=== PATIENT | male | born 1955 | race Asian ===

== ENCOUNTER 2018-05-24 10:39 | Emergency (ER) | payer OTHER ==
[~2018-05-24] VITALS: Ht 167.6 cm; Wt 78.0 kg
[2018-05-24] MEDS ORDERED: CLOP75TA16 PO (10:56)
[2018-05-24] MEDS ORDERED: ATOR10TA69 PO (10:56)
[2018-05-24] MEDS ORDERED: AMIO100T4 PO (10:56)
[2018-05-24] MEDS ORDERED: METO-396 PO (10:56)
[2018-05-24 11:18] LABS: HEMATOCRIT. 44.1 % (42.0-52.0); HEMOGLOBIN. 14.9 g/dL (14.0-18.0); MEAN CORPUSCULAR HEMOGLOBIN 30.3 pg (28.0-32.0); MEAN CORPUSCULAR VOLUME 89.9 fL (80.0-94.0); PLATELET 347 x1000/uL (130-400); RED BLOOD CELL COUNT 4.91 mill/uL (4.7-6.1)
[2018-05-24] MEDS: NITROGLYCERIN OINT 1GM/INCH UDPKT TD ONE ×2 (11:19→11:23)
[2018-05-24 11:27] LABS: PROTHROMBIN TIME 10.3 sec (9.1-11.1)
[2018-05-24 11:28] LABS: CHLORIDE 102 mEq/L (98-107)
[2018-05-24 12:36] LABS: PLATELET ESTIMATE NORMAL
[2018-05-24] MEDS ORDERED: SODIUM CHLORIDE 0.9% 1,000 ML IV ONE (13:05)
[2018-05-24 14:00] VITALS: BP 138/76
== END 2018-05-24 14:37 | disposition short-term general hospital (02) ==
LOC: ER 11:47 → CANBEDREQ 14:38
DX: R07.89 Other chest pain (principal); E87.2 Acidosis; I10 Essential (primary) hypertension; E78.00 Pure hypercholesterolemia, unspecified; I25.2 Old myocardial infarction; I25.10 Atherosclerotic heart disease of native coronary artery without angina pectoris; Z98.61 Coronary angioplasty status; Z79.899 Other long term (current) drug therapy
CPT/HCPCS: 36415; 71045; 83605; 83880; 84484; 93005; 99285